=== PATIENT | male | born 1980 | race Caucasian/White ===

== ENCOUNTER 2020-07-14 15:38 | Emergency (ER) | payer BC, OTHER ==
[~2020-07-14] VITALS: Ht 182.9 cm; Wt 81.7 kg
[2020-07-14 17:41] LABS: HEMOGLOBIN 15.8 gm/dL (14.0-18.0); MCH 30.7 pg (26.0-34.0); MCHC 34.4 g/dL (28.0-37.0); MCV 89.2 fL (80.0-100.0); PLATELET COUNT 254 thou/uL (150-400); RBC 5.16 mil/uL (4.50-6.00); WBC 5.2 thou/uL (4.0-11.0)
[2020-07-14 18:03] LABS: ANION GAP 12 mmol/L (7-16); BUN 14 mg/dL (7-18); CALCIUM 9.1 mg/dL (8.5-10.1); CHLORIDE 101 mmol/L (98-107); CO2 25 mmol/L (21-32); CREATININE 1.3 mg/dL (0.7-1.3); GLUCOSE 100 mg/dL (74-106); POTASSIUM 3.9 mmol/L (3.5-5.1); SODIUM 138 mmol/L (136-145)
[2020-07-14 18:08] LABS: ALBUMIN 4.3 g/dL (3.4-5.0); SGOT 33 U/L (15-37); SGPT 58 U/L (30-65); TOTAL BILIRUBIN 1.9 mg/dL (0.2-1.0); TOTAL PROTEIN 7.6 g/dL (6.4-8.2); TROPONIN-I <0.06 ng/mL (<0.06)
[2020-07-14 18:30] LABS: ABSOLUTE NEUTROPHILS 3.7 thou/uL (1.4-8.2); ANISOCYTOSIS 1+
[2020-07-14 18:31] LABS: POLYCHROMASIA OCCASIONAL
[2020-07-14] MEDS ORDERED: PREDNISONE 10 M10 MG PO (18:54)
[2020-07-14] MEDS ORDERED: NORFLEX100 MG PO (18:54)
[2020-07-14 19:02] VITALS: BP 139/82
--- NOTE | 2020-07-15 09:08 | EKG ---
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
== END 2020-07-14 19:07 | disposition home or self-care (01) ==
LOC: ER 15:38
PROVIDERS: Physician Assistant
DX: M54.12 Radiculopathy, cervical region (principal); R07.89 Other chest pain